=== PATIENT | female | born 1970 ===

== ENCOUNTER 2017-10-24 22:34 | Emergency (ER) | payer SELFPAY ==
[2017-10-24 22:48] VITALS: O2SAT 98
[2017-10-24] MEDS ORDERED: Sodium Chloride 0.9% 1,000 ML IV ONE (23:18)
[2017-10-24 23:47] LABS: EOS # 0.1 K/uL (0.0-0.7); EOS % 1.4 % (0.0-4.0); HEMOGLOBIN 14.7 g/dL (11.0-16.0); LYMPH # 1.8 K/uL (1.0-4.3); MEAN CELL VOLUME 94.5 fL (81.0-99.0); MEAN CORPUSCULAR HEMOGLOBIN 32.7 pg (27.0-31.0); MEAN CORPUSCULAR HGB CONC 34.6 g/dL (33.0-37.0); MEAN PLATELET VOLUME 8.2 fL (7.2-11.7); MONO # 0.3 K/uL (0.0-0.8); MONO % 6.6 % (0.0-10.0); NEUT # 2.5 K/uL (1.8-7.0); NRBC % 0.1 % (0.0-2.0); RBC 4.51 Mil/uL (3.80-5.20); RED CELL DISTRIBUTION WIDTH 13.3 % (11.5-14.5); WHITE BLOOD COUNT 4.8 K/uL (4.8-10.8)
[2017-10-24 23:58] LABS: ALB/GLOB RATIO 1.3 (1.0-2.1); ALT/SGPT 25 U/L (9-52); AST/SGOT 31 U/L (14-36); BLOOD UREA NITROGEN 8 mg/dL (7-17); CALCIUM 9.6 mg/dl (8.6-10.4); GFR AFRICAN-AMERICAN > 60; GFR NON-AFRICAN AMERICAN > 60
[2017-10-25 00:15] LABS: FREE T4 0.8 ng/dL (0.78-2.19)
--- NOTE | 2017-10-25 00:25 | C.PDOC ---
Time Seen by Provider: 10/24/17 23:11 Chief Complaint (Nursing): Dizziness/Lightheaded History Per: Patient, Family Onset/Duration Of Symptoms: Hrs (today) Current Symptoms Are (Timing): Still Present Current Symptoms: Generalized weakness Associated Symptoms Preceding Syncopal Episode: Lightheadedness, Worse With Standing Fall Associated With With Symptoms: No Severity: Moderate Additional History Per: Prior Records - Symptoms Of CVA Recent Head Trauma: No Past Medical History Reviewed: Historical Data, Nursing Documentation, Vital Signs Vital Signs: Last Vital Signs Temp 98.6 F 10/24/17 22:37 Pulse 66 10/24/17 22:37 Resp 20 10/24/17 22:37 BP 165/94 H 10/24/17 22:37 Pulse Ox 98 10/25/17 00:25 - Medical History PMH: Hypothyroidism Surgical History: Family History: States: Unknown Family Hx - Social History Hx Tobacco Use: No Hx Alcohol Use: No Hx Substance Use: No - Immunization History Hx Tetanus Toxoid Vaccination: No Hx Influenza Vaccination: No Hx Pneumococcal Vaccination: No Review Of Systems Except As Marked, All Systems Reviewed And Found Negative. Constitutional: Positive for: Malaise. Negative for: Fever Respiratory: Negative for: Shortness of Breath Gastrointestinal: Positive for: Nausea. Negative for: Vomiting, Abdominal Pain , Diarrhea Genitourinary: Positive for: Vaginal Bleeding (on her menstrual period now). Negative for: Dysuria Musculoskeletal: Negative for: Neck Pain Skin: Negative for: Rash Neurological: Positive for: Dizziness. Negative for: Weakness, Numbness, Seizures, Altered Mental Status Physical Exam - Physical Exam Appears: Non-toxic, No Acute Distress Skin: Normal Color, Warm, Dry, No Rash Head: Atraumatic, Normacephalic Eye(s): bilateral: Normal Inspection, PERRL, EOMI Neck: Normal ROM, Supple Cardiovascular: Rhythm Regular Respiratory: Normal Breath Sounds, No Accessory Muscle Use Gastrointestinal/Abdominal: Soft, No Tenderness Back: No CVA Tenderness Extremity: Normal ROM, No Pedal Edema, No Calf Tenderness Neurological/Psych: Oriented x3, Normal Speech, Normal Cognition, No Cerebellar Signs, Normal Motor, Normal Sensation ED Course And Treatment - Laboratory Results Result Diagrams: 10/24/17 23:42 10/24/17 23:42 Lab Interpretation: No Acute Changes Urine POC: Negative ECG: Interpreted By Me, Viewed By Me ECG Rhythm: Sinus Rhythm ECG Interpretation: No Acute Changes Rate From EC O2 Sat by Pulse Oximetry: 98 Pulse Ox Interpretation: Normal Reassessment Condition: Improved Progress - Interventions Interventions:: Observation, Intravenous fluid - Medications Administered Intravenous: Antiemetic - Data Reviewed Data Reviewed: Lab, EKG, Old records - Patient Status Patient status: Mostly improved - Continuity of Care Discussed patient case with:: Patient, Family-HIPPA compliant, ED Nurse - Patient Plan Patient Plan: Discharge, F/U with PCP, Continue present meds Disposition Counseled Patient/Family Regarding: Studies Performed, Diagnosis, Need For Followup, Rx Given - Disposition Referrals: Cathy Devi MD [Staff Provider] - Disposition: HOME/ ROUTINE Disposition Time: 00:33 Condition: IMPROVED Additional Instructions: Follow up with your doctor for further evaluation and treatment. Return to the ER if you develop weakness, numbness, vomiting, chest pain, worsening of symptoms or if you have any other concerns. Instructions: Dizziness, Nonvertigo, (DC) Print Language: SAMI - Clinical Impression Clinical Impression: Dizziness
[2017-10-25 01:11] VITALS: BP 142/58; PULSE 85; RESP 22; TEMP 98.7
--- NOTE | 2017-10-25 14:26 | CARD ---
APPROVED REPORT EKG Measurement Heart [id number] <Conclusion> Normal sinus rhythm Normal ECG
== END 2017-10-25 01:07 | disposition home or self-care (01) ==
LOC: C.ER 22:34
DX: R42 Dizziness and giddiness (principal)
CPT/HCPCS: 80053; 83735; 84439; 84443; 84484; 84703; 85025; 93005; 96361; 96374; 99285; J2765; J7030

== ENCOUNTER 2018-08-18 16:04 | Emergency (ER) | payer OTHER ==
[2018-08-18 16:16] VITALS: BMI 36.3
[2018-08-18 16:26] VITALS: RESP 14
[2018-08-18] MEDS ORDERED: Sodium Chloride 0.9% 1,000 ML IV ONE (16:26)
--- NOTE | 2018-08-18 16:28 | C.PDOC ---
History Of Present Illness 48 y/o female, with history of hypertension and thyroid disease, presents to the ER complaining of onset of dizziness and lightheadedness, associated with spinning sensation after she woke up this morning. Patient also complains of headache, feeling weak, and nausea but denies abdominal pain. She tried to eat this afternoon and had soup, but vomited afterwards. She reports the dizziness makes her feel SOB but denies chest pain or palpitations. Patient is currently on her menstrual period that is heavy and clotted, but she states it is not unusual for her. she has some suprapubic cramping discomfort. She reports she has been taking her blood pressure medications for the past 3 months, but recently ran out a week ago, so she has not taken any since. She took aspirin yesterday. Time Seen by Provider: 08/18/18 16:15 Chief Complaint (Nursing): Dizziness/Lightheaded History Per: Patient History/Exam Limitations: no limitations Onset/Duration Of Symptoms: Hrs Current Symptoms Are (Timing): Still Present Past Medical History Reviewed: Historical Data, Nursing Documentation, Vital Signs - Medical History PMH: HTN, Hypothyroidism Surgical History: Family History: States: No Known Family Hx - Social History Hx Tobacco Use: No Hx Alcohol Use: No Hx Substance Use: No - Immunization History Hx Tetanus Toxoid Vaccination: No Hx Influenza Vaccination: No Hx Pneumococcal Vaccination: No Review Of Systems Constitutional: Positive for: Weakness. Negative for: Fever, Chills Cardiovascular: Positive for: Light Headedness. Negative for: Chest Pain, Palpitations Respiratory: Positive for: Shortness of Breath Gastrointestinal: Positive for: Nausea, Vomiting. Negative for: Abdominal Pain Genitourinary: Positive for: Vaginal Bleeding, Pelvic Pain Neurological: Positive for: Headache, Dizziness. Negative for: Weakness, Numbness Physical Exam - Physical Exam Appears: Non-toxic, No Acute Distress, Other (Weak) Skin: Warm, Dry Head: Atraumatic, Normacephalic Eye(s): bilateral: Normal Inspection, PERRL, Other (horizontal nystagmus) Oral Mucosa: Moist Neck: Supple Cardiovascular: Rhythm Regular, No Murmur Respiratory: Normal Breath Sounds, No Rales, No Rhonchi, No Wheezing Gastrointestinal/Abdominal: Soft, No Tenderness, No Guarding, No Rebound Extremity: Bilateral: Atraumatic, Normal ROM Neurological/Psych: Oriented x3, Normal Speech, Normal Cognition, Normal Motor, Normal Sensation, Other (mild horizontal nystagmus) ED Course And Treatment - Laboratory Results Result Diagrams: 08/18/18 16:20 08/18/18 16:20 Lab Interpretation: No Acute Changes O2 Sat by Pulse Oximetry: 100 (RA) Pulse Ox Interpretation: Normal Progress Note: Patient treated with Melcizine, Zofran and IV fluids. Reevaluation Time: 18:15 Reassessment Condition: Unchanged (Patient still c/o feeling weak but is not in any obvious distress.) Medical Decision Making Medical Decision Making: Plan: --EKG --Labs --UA --Antivert 25 mg PO --IV fluids 1L --Zofran 4 mg IVP Disposition Counseled Patient/Family Regarding: Studies Performed, Diagnosis, Need For Followup, Rx Given - Disposition Referrals: [facility] [Outside] Disposition: HOME/ ROUTINE Disposition Time: 18:16 Condition: STABLE Prescriptions: Hydrochlorothiazide [Microzide] 12.5 mg PO DAILY #90 cap Meclizine [Meclizine*] 25 mg PO TID PRN #30 tab PRN Reason: Dizziness Naproxen [Naprosyn] 1 tab PO BID PRN #25 tab PRN Reason: Pain Instructions: Heavy Periods (DC), Vertigo (a Type of Dizziness) (DC), High Blood Pressure in Adults Forms: [employer] (Burkinan) Print Language: IVORIAN - Clinical Impression Clinical Impression: Vertigo, Heavy menstrual bleeding, Hypertension - Scribe Statement The provider has reviewed the documentation as recorded by the Jessica Geiger Provider Attestation: All medical record entries made by the Jessica were at my direction and personally dictated by me. I have reviewed the chart and agree that the record accurately reflects my personal performance of the history, physical exam, medical decision making, and the department course for this patient. I have also personally directed, reviewed, and agree with the discharge instructions and disposition.
[2018-08-18] MEDS ORDERED: Sodium Chloride 0.9% 1,000 ML ONE (16:35)
[2018-08-18 16:38] LABS: BASO % 0.8 % (0.0-2.0); EOS % 0.4 % (0.0-4.0); HEMOGLOBIN 13.6 g/dL (11.0-16.0); LYMPH # 1.3 K/uL (1.0-4.3); LYMPH % 29.1 % (20.0-40.0); MEAN CELL VOLUME 94.3 fL (81.0-99.0); MEAN CORPUSCULAR HEMOGLOBIN 31.2 pg (27.0-31.0); MEAN CORPUSCULAR HGB CONC 33.1 g/dL (33.0-37.0); MEAN PLATELET VOLUME 8.3 fL (7.2-11.7); MONO # 0.2 K/uL (0.0-0.8); MONO % 4.8 % (0.0-10.0); NEUT # 2.8 K/uL (1.8-7.0); NEUT % 64.9 % (50.0-75.0); RBC 4.37 Mil/uL (3.80-5.20); RED CELL DISTRIBUTION WIDTH 13.8 % (11.5-14.5); WHITE BLOOD COUNT 4.3 K/uL (4.8-10.8)
[2018-08-18 16:50] LABS: ALB/GLOB RATIO 1.4 (1.0-2.1); ALBUMIN 4.3 g/dL (3.5-5.0); ALT/SGPT 12 U/L (9-52); AST/SGOT 30 U/L (14-36); BLOOD UREA NITROGEN 9 mg/dL (7-17); CALCIUM 8.7 mg/dl (8.6-10.4); GFR NON-AFRICAN AMERICAN > 60
[2018-08-18 17:46] LABS: SQUAMOUS EPITHIAL 9 /hpf (0-5); URINE BILIRUBIN NEGATIVE (NEGATIVE); URINE BLOOD 3+ (NEGATIVE); URINE CLARITY Hazy (Clear); URINE COLOR Yellow (YELLOW); URINE GLUCOSE (UA) NORMAL (Normal); URINE LEUKOCYTE ESTERASE NEG Leu/uL (Negative); URINE PROTEIN NEGATIVE (NEGATIVE); URINE UROBILINOGEN NORMAL mg/dL (0.2-1.0)
[2018-08-18 17:55] VITALS: BP 166/80; PULSE 61; TEMP 98.7
[2018-08-18 18:15] VITALS: O2SAT 100
== END 2018-08-18 19:08 | disposition home or self-care (01) ==
LOC: C.ER 16:04
DX: R42 Dizziness and giddiness (principal); N92.0 Excessive and frequent menstruation with regular cycle; I10 Essential (primary) hypertension
CPT/HCPCS: 80053; 81001; 83735; 84703; 85025; 96361; 96374; 99285; J2405; J7030